=== PATIENT | female | born 2000 | race Two or more races ===

== ENCOUNTER 2020-11-07 13:46 | Emergency (ER) | payer MEDICARE ==
[~2020-11-07] VITALS: Ht 160 cm; Wt 72.0 kg
[2020-11-07 14:11] VITALS: BP 121/75
== END 2020-11-07 17:52 | disposition left against medical advice (07) ==
LOC: ER 13:46
DX: Z53.21 Procedure and treatment not carried out due to patient leaving prior to being seen by health care provider (principal)